=== PATIENT | male | born 1970 | race Caucasian/White ===

== ENCOUNTER 2017-05-11 10:00 | Emergency (ER) | payer OTHER ==
[~2017-05-11] VITALS: Ht 170.2 cm; Wt 74.8 kg
[~2017-05-11 10:00] MED LIST: QUET300T2 PO
--- NOTE | 2017-05-11 10:49 | NUR ---
Gregory flowers in ED - 05/11/17 at 1051 by [email or web address] Left eye irritation completed, pt tolerated well. Dr. Knox notified.
--- NOTE | 2017-05-11 12:08 | NUR ---
Patient discharged to home in stable conditon. Written and verbal after care instructions given. Patient verbalizes understanding of instructions. Stressed follow up or return to ER for worsening s/s.
== END 2017-05-11 12:09 | disposition home or self-care (01) ==
LOC: ER 10:00
DX: S66.912A Strain of unspecified muscle, fascia and tendon at wrist and hand level, left hand, initial encounter (principal); Z88.0 Allergy status to penicillin; X58.XXXA Exposure to other specified factors, initial encounter; Y93.89 Activity, other specified; Y92.9 Unspecified place or not applicable; Y99.9 Unspecified external cause status
CPT/HCPCS: 73120; A4663